=== PATIENT | female | born 1960 | race Hispanic/Latino ===

== ENCOUNTER 2020-03-14 06:53 | Emergency (ER) | payer OTHER ==
[2020-03-14] MEDS ORDERED: SODIUM CHLORIDE 0.9% 1000ML 1,000 ML IV ONE (06:54)
[2020-03-14 07:27] LABS: BASOPHILS % (AUTO) 0.4 % (0.0-5.0); EOSINOPHILS % (AUTO) 1.5 % (0.0-8.0); HEMATOCRIT 45.1 % (36-48); LYMPHOCYTES % (AUTO) 30.4 % (21.0-51.0); MEAN CORPUSCULAR HEMOGLOBIN 32.2 pg (27.0-33.0); MEAN CORPUSCULAR HGB CONC 34.6 g/dL (32.0-36.0); MONOCYTES % (AUTO) 7.8 % (3.0-13.0); NEUTROPHILS % (AUTO) 59.7 % (40.0-77.0); PLATELET COUNT (AUTO) 182 K/uL (130-400); RED BLOOD CELL COUNT(AUTO) 4.85 MIL/uL (4.00-5.50); RED CELL DISTRIBUTION WIDTH 12.4 % (11.0-15.5); WHITE BLOOD COUNT (AUTO) 4.6 K/uL (4.8-10.8)
[2020-03-14 07:42] LABS: BILIRUBIN,DIRECT 0.1 mg/dL (0.0-0.3); BILIRUBIN,TOTAL 0.6 mg/dL (0.2-1.0); CREATININE 0.8 mg/dL (0.5-1.5); POTASSIUM 4.1 mmol/L (3.5-5.1)
[2020-03-14] MEDS ORDERED: MAG HYDROX/AL HYDROX/SIMETH ES 30 ML SUSP UDCUP ONE (07:45)
[2020-03-14] MEDS ORDERED: ONDANSETRON HCL 4 MG/2 ML VIAL ONE (07:45)
[2020-03-14] MEDS ORDERED: LIDOCAINE HCL 2% VISCOUS 15 ML UDCUP ONE (07:45)
[2020-03-14] MEDS ORDERED: KETOROLAC TROMETHAMINE 30MG/ML ONE (07:46)
[2020-03-14] MEDS ORDERED: DICYCLOMINE HCL 10 MG/ML 2ML AMP IM ONE (08:40)
[2020-03-14] MEDS ORDERED: MORPHINE SULFATE 4 MG/1ML SYG ONE (10:00)
== END 2020-03-14 11:35 | disposition home or self-care (01) ==
LOC: EDH 06:53
DX: R10.13 Epigastric pain (principal); R11.0 Nausea; Z98.890 Other specified postprocedural states
CPT/HCPCS: 36415; 74018; 76705; 80048; 80076; 82550; 83690; 84484 ×2; 85025; 93005; 96361; 96374; 96375; 99284; 96372; 99285; J0500; J1885; J2270; J2405; J7030

== ENCOUNTER 2020-03-14 16:59 | Emergency (ER) | payer OTHER ==
[2020-03-14] MEDS ORDERED: LIDOCAINE HCL 2% VISCOUS 15 ML UDCUP ONE ×2 (17:31→19:41)
[2020-03-14] MEDS ORDERED: MAG HYDROX/AL HYDROX/SIMETH ES 30 ML SUSP UDCUP ONE ×2 (17:31→19:41)
[2020-03-14] MEDS ORDERED: FAMOTIDINE 20MG TAB 20 MG TAB ONE (17:32)
[2020-03-14] MEDS ORDERED: MAGNESIUM CITRATE 296 ML SOLUTION ONE (20:58)
== END 2020-03-14 21:13 | disposition home or self-care (01) ==
LOC: EDH 16:59
DX: K80.50 Calculus of bile duct without cholangitis or cholecystitis without obstruction (principal); R10.13 Epigastric pain; R10.11 Right upper quadrant pain
CPT/HCPCS: 76705; 84484

== ENCOUNTER 2020-04-02 00:03 | Emergency (ER) | payer OTHER ==
[2020-04-02] MEDS ORDERED: LIDOCAINE HCL 2% VISCOUS 15 ML UDCUP ONE ×2 (00:16→06:29)
[2020-04-02] MEDS ORDERED: MAG HYDROX/AL HYDROX/SIMETH ES 30 ML SUSP UDCUP ONE ×2 (00:16→06:29)
[2020-04-02] MEDS ORDERED: FAMOTIDINE 20MG TAB 20 MG TAB ONE ×3 (01:19→04:59)
[2020-04-02] MEDS ORDERED: ONDANSETRON 4 MG TABLET ONE (01:19)
[2020-04-02 01:22] LABS: BASOPHILS % (AUTO) 0.4 % (0.0-5.0); EOSINOPHILS % (AUTO) 1.8 % (0.0-8.0); HEMATOCRIT 42.3 % (36-48); LYMPHOCYTES % (AUTO) 31.6 % (21.0-51.0); MEAN CORPUSCULAR HGB CONC 34.5 g/dL (32.0-36.0); MEAN CORPUSCULAR VOLUME 92.8 fL (79-99); MONOCYTES % (AUTO) 10.2 % (3.0-13.0); NEUTROPHILS % (AUTO) 55.8 % (40.0-77.0); PLATELET COUNT (AUTO) 147 K/uL (130-400); RED BLOOD CELL COUNT(AUTO) 4.56 MIL/uL (4.00-5.50); RED CELL DISTRIBUTION WIDTH 12.6 % (11.0-15.5)
[2020-04-02 01:39] LABS: CREATININE 0.8 mg/dL (0.5-1.5); POTASSIUM 3.4 mmol/L (3.5-5.1)
[2020-04-02] MEDS ORDERED: DICYCLOMINE HCL 20 MG TAB ONE (03:01)
== END 2020-04-02 06:38 | disposition home or self-care (01) ==
LOC: EDH 00:03
DX: R10.13 Epigastric pain (principal); K21.9 Gastro-esophageal reflux disease without esophagitis; Z98.890 Other specified postprocedural states
CPT/HCPCS: 36415; 80048; 82550; 83690; 84484; 85025; 93005; 99284; Q0162

== ENCOUNTER 2020-04-04 00:08 | Emergency (ER) | payer OTHER ==
[2020-04-04] MEDS ORDERED: DICYCLOMINE HCL 10 MG/ML 2ML AMP IM ONE (00:51)
[2020-04-04] MEDS ORDERED: MAG HYDROX/AL HYDROX/SIMETH ES 30 ML SUSP UDCUP ONE (00:51)
[2020-04-04] MEDS ORDERED: FAMOTIDINE 20MG TAB 20 MG TAB ONE (00:51)
[2020-04-04] MEDS ORDERED: LIDOCAINE HCL 2% VISCOUS 15 ML UDCUP ONE (00:51)
[2020-04-04] MEDS ORDERED: ONDANSETRON ODT 4 MG TAB ONE (00:52)
[2020-04-04] MEDS ORDERED: METOCLOPRAMIDE 10 MG TABLET ONE (00:52)
[2020-04-04] MEDS ORDERED: PANTOPRAZOLE SODIUM 40 MG TABLET.DR ONE (00:52)
[2020-04-04] MEDS ORDERED: SIMETHICONE 80 MG TAB.CHEW ONE (02:20)
[2020-04-04] MEDS ORDERED: LACTULOSE 20 GM/30 ML UDCUP ONE (02:53)
== END 2020-04-04 03:01 | disposition home or self-care (01) ==
LOC: EDH 00:08
DX: K59.00 Constipation, unspecified (principal); R10.13 Epigastric pain; K21.9 Gastro-esophageal reflux disease without esophagitis; Z98.890 Other specified postprocedural states
CPT/HCPCS: 96372; 99284; J0500

== ENCOUNTER 2020-04-18 01:56 | Emergency (ER) | payer OTHER ==
[2020-04-18] MEDS ORDERED: LIDOCAINE HCL 2% VISCOUS 15 ML UDCUP ONE (03:02)
[2020-04-18] MEDS ORDERED: LACTULOSE 20 GM/30 ML UDCUP ONE (03:03)
[2020-04-18] MEDS ORDERED: MAG HYDROX/AL HYDROX/SIMETH ES 30 ML SUSP UDCUP ONE (03:03)
[2020-04-18] MEDS ORDERED: DICYCLOMINE HCL 10 MG/ML 2ML AMP IM ONE (03:04)
[2020-04-18] MEDS ORDERED: FAMOTIDINE 20MG TAB 20 MG TAB ONE (03:04)
[2020-04-18] MEDS ORDERED: PANTOPRAZOLE SODIUM 40 MG TABLET.DR ONE (03:04)
[2020-04-18] MEDS ORDERED: ONDANSETRON ODT 4 MG TAB ONE (03:05)
[2020-04-30] MEDS ORDERED: SUCR1ORA15 PO (22:18)
[2020-04-30] MEDS ORDERED: FAMO20TA8 PO (22:18)
[2020-04-30] MEDS ORDERED: ESOM40CA PO (22:18)
[2020-04-30] MEDS ORDERED: DICY20TA11 PO (22:18)
== END 2020-04-18 04:35 | disposition home or self-care (01) ==
LOC: EDH 01:56
DX: K59.00 Constipation, unspecified (principal); R10.13 Epigastric pain; R11.10 Vomiting, unspecified; K21.9 Gastro-esophageal reflux disease without esophagitis; Z98.890 Other specified postprocedural states
CPT/HCPCS: 96372; 99284; J0500

== ENCOUNTER 2020-04-18 14:54 | Emergency (ER) | payer OTHER ==
[2020-04-18] MEDS ORDERED: FAMOTIDINE 20MG TAB 20 MG TAB ONE (15:23)
[2020-04-18] MEDS ORDERED: LIDOCAINE HCL 2% VISCOUS 15 ML UDCUP ONE (15:23)
[2020-04-18] MEDS ORDERED: MAG HYDROX/AL HYDROX/SIMETH ES 30 ML SUSP UDCUP ONE (15:23)
[2020-04-18] MEDS ORDERED: PANTOPRAZOLE SODIUM 40 MG TABLET.DR ONE (15:24)
[2020-04-18] MEDS ORDERED: DICYCLOMINE HCL 10 MG/ML 2ML AMP IM ONE (15:24)
[2020-04-18] MEDS ORDERED: LACTULOSE 20 GM/30 ML UDCUP ONE (16:27)
[2020-04-30] MEDS ORDERED: ESOM40CA PO (22:18)
[2020-04-30] MEDS ORDERED: SUCR1ORA15 PO (22:18)
[2020-04-30] MEDS ORDERED: FAMO20TA8 PO (22:18)
[2020-04-30] MEDS ORDERED: DICY20TA11 PO (22:18)
== END 2020-04-18 16:35 | disposition home or self-care (01) ==
LOC: EDH 14:54
DX: K29.70 Gastritis, unspecified, without bleeding (principal); K59.00 Constipation, unspecified; K21.9 Gastro-esophageal reflux disease without esophagitis; Z98.890 Other specified postprocedural states
CPT/HCPCS: 96372; 99284; J0500

== ENCOUNTER 2020-04-27 02:37 | Emergency (ER) | payer OTHER ==
[2020-04-27] MEDS ORDERED: MAG HYDROX/AL HYDROX/SIMETH ES 30 ML SUSP UDCUP ONE (03:11)
[2020-04-27] MEDS ORDERED: LIDOCAINE HCL 2% VISCOUS 15 ML UDCUP ONE (03:11)
[2020-04-27] MEDS ORDERED: FAMOTIDINE 20MG TAB 20 MG TAB ONE (03:12)
[2020-04-27] MEDS ORDERED: DICYCLOMINE HCL 10 MG/ML 2ML AMP IM ONE (03:13)
[2020-04-27] MEDS ORDERED: PANTOPRAZOLE SODIUM 40 MG TABLET.DR ONE (03:13)
[2020-04-27] MEDS ORDERED: SIMETHICONE 80 MG TAB.CHEW ONE (03:14)
[2020-04-30] MEDS ORDERED: DICY20TA11 PO (22:18)
[2020-04-30] MEDS ORDERED: FAMO20TA8 PO (22:18)
[2020-04-30] MEDS ORDERED: SUCR1ORA15 PO (22:18)
[2020-04-30] MEDS ORDERED: ESOM40CA PO (22:18)
== END 2020-04-27 05:57 | disposition home or self-care (01) ==
LOC: EDH 02:37
DX: R10.13 Epigastric pain (principal); K21.9 Gastro-esophageal reflux disease without esophagitis; Z98.890 Other specified postprocedural states
CPT/HCPCS: 96372; 99284; J0500

== ENCOUNTER 2020-05-07 08:49 | Inpatient (IN) | payer OTHER ==
[~2020-05-07] VITALS: Ht 142.2 cm; Wt 89.4 kg
[~2020-05-07 08:49] MED LIST: ACET-2743 PO; DICY20TA11 PO; ESOM40CA PO; FAMO20TA8 PO; SUCR1ORA15 PO
[2020-05-07 10:54] LABS: BASOPHILS % (AUTO) 0.2 % (0.0-5.0); EOSINOPHILS % (AUTO) 0.4 % (0.0-8.0); HEMATOCRIT 31.2 % (36-48); LYMPHOCYTES % (AUTO) 15.7 % (21.0-51.0); MEAN CORPUSCULAR HEMOGLOBIN 32.6 pg (27.0-33.0); MEAN CORPUSCULAR HGB CONC 34.3 g/dL (32.0-36.0); MEAN CORPUSCULAR VOLUME 95.1 fL (79-99); MONOCYTES % (AUTO) 9.2 % (3.0-13.0); NEUTROPHILS % (AUTO) 73.9 % (40.0-77.0); PLATELET COUNT (AUTO) 173 K/uL (130-400); RED BLOOD CELL COUNT(AUTO) 3.28 MIL/uL (4.00-5.50); RED CELL DISTRIBUTION WIDTH 13.7 % (11.0-15.5); WHITE BLOOD COUNT (AUTO) 4.8 K/uL (4.8-10.8)
[2020-05-07 11:01] LABS: CARBON DIOXIDE 28 mmol/L (21-32); CHLORIDE 107 mmol/L (101-111); CREATININE 0.5 mg/dL (0.5-1.5); GLOMERULAR FILTR. RATE CALC 135 mL/min (>60); GLUCOSE,RANDOM 98 mg/dL (70-105); POTASSIUM 3.3 mmol/L (3.5-5.1); SODIUM SERUM 143 mmol/L (136-145); UREA NITROGEN, BLOOD 5 mg/dL (7-18)
[2020-05-07 11:06] LABS: ALANINE AMINOTRANSFERASE 44 U/L (12-78); ALBUMIN 3.2 g/dL (3.5-5.0); ASPARTATE AMINOTRANSFERASE 44 U/L (10-37); BILIRUBIN,DIRECT 0.3 mg/dL (0.0-0.3); BILIRUBIN,TOTAL 1.1 mg/dL (0.2-1.0); CREATINE KINASE, TOTAL 104 U/L (21-232); TOTAL PROTEIN, SERUM 6.5 g/dL (6.0-8.3)
[2020-05-07 11:11] LABS: LIPASE < 50 U/L (114-286)
[2020-05-07] MEDS ORDERED: LIDOCAINE HCL 2% VISCOUS 15 ML UDCUP ONE (11:16)
[2020-05-07] MEDS ORDERED: MAG HYDROX/AL HYDROX/SIMETH ES 30 ML SUSP UDCUP ONE (11:16)
[2020-05-07] MEDS ORDERED: ACETAMINOPHEN 325 MG TAB PO PRN ×2 (14:00)
[2020-05-07] MEDS ORDERED: MORPHINE SULFATE 2 MG/ML 1ML SYG IV PRN (14:00)
[2020-05-07 15:00] VITALS: BP 161/55
--- NOTE | 2020-05-07 19:50 | NUR ---
potassium 3.3 Called and informed on-call hospitalist with an order to give Potassium 20 mEQ IV x 1 only
[2020-05-07 20:00] VITALS: BP 156/84
[2020-05-07] MEDS ORDERED: LIDOCAINE HCL-MPF 1% 2ML VIAL IV SCH (20:00)
[2020-05-07] MEDS ORDERED: POTASSIUM CHLORIDE 20 MEQ/100 ML BAG IV SCH (20:00)
[2020-05-07] MEDS: SODIUM CHLORIDE 0.9% 1000ML 1,000 ML IV SCH (20:13)
[2020-05-07] MEDS: MAG HYDROX/AL HYDROX/SIMETH 60 ML, LIDOCAINE HCL 2% VISCOUS 60 ML, DIPHENHYDRAMINE HCL ... PO PRN ×3 (20:20)
[2020-05-07] MEDS: ONDANSETRON HCL 4 MG/2 ML VIAL IV PRN (20:25)
[2020-05-08] VITALS (20 sets, daily range): BP systolic 99–147; BP diastolic 47–89
[2020-05-08] MEDS: ONDANSETRON HCL 4 MG/2 ML VIAL IV PRN ×2 (05:52→12:07)
[2020-05-08] MEDS: MAG HYDROX/AL HYDROX/SIMETH 60 ML, LIDOCAINE HCL 2% VISCOUS 60 ML, DIPHENHYDRAMINE HCL ... PO PRN ×6 (05:53→12:17)
[2020-05-08 06:09] LABS: BASOPHILS % (AUTO) 0.2 % (0.0-5.0); EOSINOPHILS % (AUTO) 1.6 % (0.0-8.0); HEMATOCRIT 32.8 % (36-48); LYMPHOCYTES % (AUTO) 26.2 % (21.0-51.0); MEAN CORPUSCULAR HEMOGLOBIN 31.8 pg (27.0-33.0); MEAN CORPUSCULAR HGB CONC 33.2 g/dL (32.0-36.0); MEAN CORPUSCULAR VOLUME 95.6 fL (79-99); MONOCYTES % (AUTO) 11.3 % (3.0-13.0); NEUTROPHILS % (AUTO) 60.5 % (40.0-77.0); PLATELET COUNT (AUTO) 192 K/uL (130-400); RED BLOOD CELL COUNT(AUTO) 3.43 MIL/uL (4.00-5.50); RED CELL DISTRIBUTION WIDTH 14.1 % (11.0-15.5)
[2020-05-08 06:32] LABS: ALBUMIN 3.2 g/dL (3.5-5.0); BILIRUBIN,TOTAL 1.3 mg/dL (0.2-1.0); CREATININE 0.6 mg/dL (0.5-1.5); POTASSIUM 4.2 mmol/L (3.5-5.1); TOTAL PROTEIN, SERUM 6.6 g/dL (6.0-8.3)
[2020-05-08] MEDS ORDERED: LACTULOSE 20 GM/30 ML UDCUP PO PRN (07:00)
[2020-05-08] MEDS: ENOXAPARIN SODIUM 30 MG/0.3 ML SQ SCH (09:00)
[2020-05-08] MEDS: PANTOPRAZOLE 40 MG/VIAL IVP SCH ×2 (09:26→22:09)
[2020-05-08] MEDS ORDERED: SUCCINYLCHOLINE 200MG/10ML SYR ONE (10:27)
[2020-05-08] MEDS ORDERED: ATROPINE SULFATE 0.1 MG/ML 10 ML SYG IVP ONE (10:27)
[2020-05-08] MEDS ORDERED: PROPOFOL 10 MG/ML 20ML VIAL IV ONE (10:27)
[2020-05-08] MEDS ORDERED: LIDOCAINE HCL 1% 20 ML VIAL ONE (10:27)
[2020-05-08] MEDS ORDERED: GLYCOPYRROLATE 1 MG/5 ML SYRINGE ONE (10:28)
--- NOTE | 2020-05-08 11:50 | NUR ---
PT BACK FROM THE GI LAB AFTER EUS PROCEDURE PER DR DORSEY. PT AAO X [address]issa ORDERS AND POSTOP V/S STARTED ,
--- NOTE | 2020-05-08 12:25 | NUR ---
ORDER FULL LIQUID FOR NOW. REVIEW DR. JESSICA AND CALL LIGHT IN REACH,
--- NOTE | 2020-05-08 15:09 | NUR ---
MET WITH PATIENT FOR D/C PLANNING SPOU[facility] AT [facility], WHO WILL PROVIDE TRANSPORT. IS INDEPENDENT, NO DME, DRIVES AND DCP HOME. NO PRIMARY MD. 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 GOES TO [facility] FOR ACUTE PROBLEMS. Addendum: 05/08/20 at 1512 by ZACKERY MORALEZ RN CM Amended: Links added.
[2020-05-08] MEDS: SODIUM CHLORIDE 0.9% 1000ML 1,000 ML IV SCH ×2 (17:06)
[2020-05-08] MEDS: MAG HYDROX/AL HYDROX/SIMETH ES 30 ML SUSP UDCUP PO SCH (22:09)
[2020-05-08] MEDS: SUCRALFATE 1 GM TABLET PO SCH (22:45)
[2020-05-08] MEDS ORDERED: ZOLPIDEM TARTRATE 5 MG TAB PO ONE (22:45)
--- NOTE | 2020-05-08 22:45 | NUR ---
PATIENT REQUESTING SLEEPING AID AND REPORTS PERSISTENT REFLUX DISCOMFORT. CALLED ERIC ROY N.P. NEW ORDERS GIVEN FOR AMBIEN 5MG X1 AND CARAFATE 1GM X1. HOWEVER, PATIENT REFUSED CARAFATE AT THIS TIME, STATES SHE MIGHT TAKE IT LATER TONIGHT WHEN SHE GETS UP TO WALK THE REFLUX GETS WORSE WHEN LAYING IN BED. WILL CONTINUE TO MONITOR.
[2020-05-08] MEDS ORDERED: ZOLPIDEM TARTRATE 5 MG TAB ONE (22:47)
[2020-05-08] MEDS ORDERED: SUCRALFATE 1 GM TABLET ONE (22:47)
[2020-05-09 00:18] VITALS: BP 107/45
[2020-05-09 04:17] VITALS: BP 128/60
[2020-05-09 08:00] VITALS: BP 104/52
[2020-05-09] MEDS: MAG HYDROX/AL HYDROX/SIMETH ES 30 ML SUSP UDCUP PO SCH ×3 (10:09→21:00)
[2020-05-09] MEDS: SUCRALFATE 1 GM TABLET PO SCH ×2 (10:09→21:19)
[2020-05-09] MEDS: PANTOPRAZOLE 40 MG/VIAL IVP SCH ×2 (10:10→21:19)
[2020-05-09] MEDS: ENOXAPARIN SODIUM 30 MG/0.3 ML SQ SCH (10:13)
[2020-05-09 12:00] VITALS: BP 122/54
[2020-05-09 16:00] VITALS: BP 122/59
[2020-05-09] MEDS: SODIUM CHLORIDE 0.9% 1000ML 1,000 ML IV SCH ×2 (16:00→16:32)
[2020-05-09] MEDS ORDERED: ONDA-104 PO (17:34)
[2020-05-09] MEDS ORDERED: ESOM40CA54 PO (17:34)
[2020-05-09] MEDS ORDERED: FAMO20TA8 PO (17:34)
[2020-05-09] MEDS ORDERED: SUCR1ORA15 PO (17:34)
[2020-05-09] MEDS ORDERED: DICY20TA11 PO (17:34)
--- NOTE | 2020-05-09 17:34 | NUR ---
REDCONSILATION . MEDICATION .REVIEW. AND PLACED IN THE COMPUTER .FOR DR. QUINTANILLA .
[2020-05-09 20:11] VITALS: BP 125/86
[2020-05-10 00:25] VITALS: BP 129/68
[2020-05-10 04:00] VITALS: BP 113/58
[2020-05-10 06:47] LABS: BASOPHILS % (AUTO) 0.4 % (0.0-5.0); EOSINOPHILS % (AUTO) 1.7 % (0.0-8.0); HEMATOCRIT 32.3 % (36-48); LYMPHOCYTES % (AUTO) 23.6 % (21.0-51.0); MEAN CORPUSCULAR HEMOGLOBIN 32.1 pg (27.0-33.0); MEAN CORPUSCULAR HGB CONC 33.4 g/dL (32.0-36.0); MEAN CORPUSCULAR VOLUME 96.1 fL (79-99); MONOCYTES % (AUTO) 9.3 % (3.0-13.0); NEUTROPHILS % (AUTO) 64.2 % (40.0-77.0); PLATELET COUNT (AUTO) 193 K/uL (130-400); RED BLOOD CELL COUNT(AUTO) 3.36 MIL/uL (4.00-5.50); RED CELL DISTRIBUTION WIDTH 14.5 % (11.0-15.5); WHITE BLOOD COUNT (AUTO) 5.3 K/uL (4.8-10.8)
[2020-05-10 07:05] LABS: ALBUMIN 2.9 g/dL (3.5-5.0); BILIRUBIN,TOTAL 1.3 mg/dL (0.2-1.0); CREATININE 0.4 mg/dL (0.5-1.5); POTASSIUM 3.6 mmol/L (3.5-5.1)
[2020-05-10 07:30] VITALS: BP 111/42
[2020-05-10] MEDS: SODIUM CHLORIDE 0.9% 1000ML 1,000 ML IV SCH ×3 (07:55→21:25)
[2020-05-10] MEDS: SUCRALFATE 1 GM TABLET PO SCH ×3 (08:41→20:34)
[2020-05-10] MEDS: PANTOPRAZOLE 40 MG/VIAL IVP SCH ×2 (08:41→20:34)
[2020-05-10] MEDS: MAG HYDROX/AL HYDROX/SIMETH ES 30 ML SUSP UDCUP PO SCH ×3 (08:42→20:34)
[2020-05-10] MEDS: ENOXAPARIN SODIUM 30 MG/0.3 ML SQ SCH (08:42)
--- NOTE | 2020-05-10 10:00 | NUR ---
DR. HERNANDEZ, PT REFUSED CONSULT BY DR. HERNANDEZ, SHE DIDN'T WANT TO DISCUSS WHY SHE REFUSED THIS TREATMENT.
[2020-05-10 11:00] VITALS: BP 118/61
[2020-05-10 16:00] VITALS: BP 119/62
--- NOTE | 2020-05-10 18:08 | NUR ---
GI PER DR. CARBAJAL PATIENT GOING FOR GASTRO EMPTY STUDY TOMORROW AND CYNDIE YAO IS AWARE.
[2020-05-10 20:00] VITALS: BP 113/70
--- NOTE | 2020-05-10 20:35 | NUR ---
MEDS PT JUST HAD HER SHOWER, TOLERATED ACTIVITY WELL. SHIFT ASSESSMENT DONE, PLEASE REFER TO CHART. DUE MEDS ADMINISTERED, TOLERATED WELL. CALL LIGHT WITHIN REACH. WILL MONITOR PT. Addendum: 05/10/20 at 2123 by ROMULO BUSH RN RN Amended: Links added.
[2020-05-10] MEDS: ONDANSETRON HCL 4 MG/2 ML VIAL IV PRN (22:00)
--- NOTE | 2020-05-10 22:00 | NUR ---
NAUSEA PT VERBALIZES OF HAVING NAUSEA. MEDICATED WITH ZOFRAN IV. PT WALKED AROUND THE FLOOR, PT TOLERATING ACTIVITY WELL INDEPENDENTLY.
[2020-05-11] VITALS: BP 122/71
--- NOTE | 2020-05-11 01:50 | NUR ---
ROUNDS PT RESTING WELL, FAIRLY ASLEEP. NO DISTRESS NOTED. KEPT UNDISTURBED FOR NOW. KEPT NPO. CALL LIGHT WITHIN REACH. WILL MONITOR PT.
[2020-05-11 04:00] VITALS: BP 115/63
--- NOTE | 2020-05-11 04:56 | NUR ---
ROUNDS PT SLEPT AT LONG INTERVALS. NO DISTRESS NOTED. KEPT NPO. KEPT COMFORTABLE IN BED. FOR MORE CARE.
[2020-05-11 06:00] LABS: BASOPHILS % (AUTO) 0.3 % (0.0-5.0); EOSINOPHILS % (AUTO) 2.6 % (0.0-8.0); LYMPHOCYTES % (AUTO) 26.2 % (21.0-51.0); MEAN CORPUSCULAR HEMOGLOBIN 32.6 pg (27.0-33.0); MEAN CORPUSCULAR HGB CONC 33.9 g/dL (32.0-36.0); MEAN CORPUSCULAR VOLUME 96.2 fL (79-99); MONOCYTES % (AUTO) 11.9 % (3.0-13.0); NEUTROPHILS % (AUTO) 58.5 % (40.0-77.0); PLATELET COUNT (AUTO) 167 K/uL (130-400); RED BLOOD CELL COUNT(AUTO) 2.91 MIL/uL (4.00-5.50); RED CELL DISTRIBUTION WIDTH 14.6 % (11.0-15.5); WHITE BLOOD COUNT (AUTO) 3.9 K/uL (4.8-10.8)
[2020-05-11 06:20] LABS: ALBUMIN 2.5 g/dL (3.5-5.0); CREATININE 0.5 mg/dL (0.5-1.5); POTASSIUM 3.6 mmol/L (3.5-5.1); TOTAL PROTEIN, SERUM 5.2 g/dL (6.0-8.3)
[2020-05-11] MEDS: SODIUM CHLORIDE 0.9% 1000ML 1,000 ML IV SCH ×2 (06:24→18:00)
--- NOTE | 2020-05-11 08:00 | NUR ---
ASSESSMENT NOTE PT AAOX3 PT IN BED STATING SHE IS NAUSEATED, SHE HAS NO PAIN, VS STABLE NO SHORTNESS OF BREATH. SHE IS SCHEDULED FOR GASTRIC EMPTING STUDY PER DR. CARBAJAL.
[2020-05-11 08:02] VITALS: BP 120/66
[2020-05-11] MEDS: SUCRALFATE 1 GM TABLET PO SCH ×2 (08:27→14:07)
[2020-05-11] MEDS: MAG HYDROX/AL HYDROX/SIMETH ES 30 ML SUSP UDCUP PO SCH ×2 (08:28→14:07)
[2020-05-11] MEDS: ENOXAPARIN SODIUM 30 MG/0.3 ML SQ SCH (09:02)
[2020-05-11] MEDS: PANTOPRAZOLE 40 MG/VIAL IVP SCH (09:53)
--- NOTE | 2020-05-11 10:00 | NUR ---
ROUNDING PT IS WALKING AROUND IN THE HALLWAY.
[2020-05-11 11:00] VITALS: BP 122/65
--- NOTE | 2020-05-11 12:30 | NUR ---
ROUNDING PT LEFT FOR GASTRIC EMPTING STUDY BY WHEELCHAIR
--- NOTE | 2020-05-11 13:30 | NUR ---
GI PT REFUSED GASTRIC EMPTING STUDY. PT DIDN'T NOT WANT TO DISCUSS REASON WHY SHE REFUSED. PT HAS SIGNED REFUSAL OF TREATMENT. DR. CARBAJAL IS AWARE SHE IS SCHEDULED FOR THE GASTRIC EMPTING STUDY TOMORROW WITH [facility]. NO FURTHER ORDERS AT THIS TIME
--- NOTE | 2020-05-11 14:10 | NUR ---
Se MADRID CAME TO SEE PT AT BEDSIDE
--- NOTE | 2020-05-11 14:24 | NUR ---
DR. CHAN,P PT MAYBE D/C TO HOME. TO F/U WITH DR. CARBAJAL FOR HER GASTRIC EMPTYING STUDY TOMORROW AND F/U WITH PRIMARY
[2020-05-11 16:15] VITALS: BP 104/69
[2020-05-11] MEDS: ONDANSETRON HCL 4 MG/2 ML VIAL IV PRN (17:23)
--- NOTE | 2020-05-11 18:42 | NUR ---
DC PT AA0X3 LEFT VIA WHEELCHAIR IN PVT CAR. NO COMPLICATIONS UPON LEAVING. SHE IS CALL DR CARBAJAL OFFICE TO FOLLOW UP TOMORROW., VS STABLE UPON D/C
== END 2020-05-11 18:40 | disposition home or self-care (01) | DRG 947 ==
LOC: EDH 08:49 → 3CH 13:49 → 3BH 05-08 06:19
PROVIDERS: ADMIT Hospitalist; ATTEND Hospitalist
PROC: 0DJ08ZZ Inspection of Upper Intestinal Tract, Via Natural or Artificial Opening Endoscopic (ICD-10-PCS; principal; 2020-05-08)
DX: G89.18 Other acute postprocedural pain (principal); K66.1 Hemoperitoneum; E44.0 Moderate protein-calorie malnutrition; Z68.41 Body mass index [BMI] 40.0-44.9, adult; K29.50 Unspecified chronic gastritis without bleeding; K21.9 Gastro-esophageal reflux disease without esophagitis; F41.9 Anxiety disorder, unspecified; R74.8 Abnormal levels of other serum enzymes; R93.2 Abnormal findings on diagnostic imaging of liver and biliary tract; K31.89 Other diseases of stomach and duodenum; Z90.49 Acquired absence of other specified parts of digestive tract
CPT/HCPCS: 36415; 43237; 74176; 80048; 80053; 80076; 82550; 83690; 84484; 85025; 87486; 87581; 87633; 87798; 93005; A4606; C9113; G0378; J0330; J0461; J1650; J2405; J2704; J3480; J3490; J7030

== ENCOUNTER 2020-05-30 18:08 | Emergency (ER) | payer OTHER ==
[~2020-05-30 18:08] MED LIST changes: -ACET-2743 PO; -ESOM40CA PO; +ESOM40CA54 PO; +ONDA-104 PO
[2020-05-30] MEDS ORDERED: FAMOTIDINE 20MG TAB 20 MG TAB ONE (18:29)
[2020-05-30] MEDS ORDERED: LIDOCAINE HCL 2% VISCOUS 15 ML UDCUP ONE (18:29)
[2020-05-30] MEDS ORDERED: MAG HYDROX/AL HYDROX/SIMETH ES 30 ML SUSP UDCUP ONE (18:29)
[2020-05-30 18:59] LABS: BASOPHILS % (AUTO) 0.2 % (0.0-5.0); EOSINOPHILS % (AUTO) 1.6 % (0.0-8.0); HEMATOCRIT 43.1 % (36-48); LYMPHOCYTES % (AUTO) 27.8 % (21.0-51.0); MEAN CORPUSCULAR HEMOGLOBIN 32.6 pg (27.0-33.0); MEAN CORPUSCULAR HGB CONC 33.6 g/dL (32.0-36.0); MEAN CORPUSCULAR VOLUME 96.9 fL (79-99); MONOCYTES % (AUTO) 7.8 % (3.0-13.0); NEUTROPHILS % (AUTO) 62.4 % (40.0-77.0); PLATELET COUNT (AUTO) 170 K/uL (130-400); RED BLOOD CELL COUNT(AUTO) 4.45 MIL/uL (4.00-5.50); WHITE BLOOD COUNT (AUTO) 4.9 K/uL (4.8-10.8)
[2020-05-30 19:09] LABS: CREATININE 0.8 mg/dL (0.5-1.5); POTASSIUM 4.4 mmol/L (3.5-5.1)
[2020-05-30 19:13] LABS: ALBUMIN 4.1 g/dL (3.5-5.0); BILIRUBIN,TOTAL 0.6 mg/dL (0.2-1.0); TOTAL PROTEIN, SERUM 7.7 g/dL (6.0-8.3)
[2020-05-30 21:00] LABS: APPEARANCE,URINE Turbid (CLEAR); BILIRUBIN,URINE Negative (NEGATIVE); COLOR,URINE Dark Yellow (YELLOW); GLUCOSE, URINE (UA) Negative (NEGATIVE); KETONES,URINE >=80 mg/dL (NEGATIVE); LEUKOCYTE ESTERASE ,URINE Moderate (NEGATIVE); NITRATE,URINE Negative (NEGATIVE); OCCULT BLOOD,URINE Negative (NEGATIVE); PH,URINE 5.5 (5.0-8.0); PROTEIN,URINE Trace mg/dL (NEGATIVE)
[2020-05-30] MEDS ORDERED: DICYCLOMINE HCL 10 MG/ML 2ML AMP IM ONE (21:21)
[2020-05-30 21:25] LABS: BACTERIA,URINE Few /HPF (None Seen); CALCIUM OXALATE CRYSTALS,UR Moderate /LPF (None Seen); RBC,URINE None Seen /HPF (0-1)
== END 2020-05-30 21:41 | disposition home or self-care (01) ==
LOC: EDH 18:08
DX: K29.00 Acute gastritis without bleeding (principal); K43.9 Ventral hernia without obstruction or gangrene; G89.18 Other acute postprocedural pain; R10.13 Epigastric pain; K21.9 Gastro-esophageal reflux disease without esophagitis; Z90.49 Acquired absence of other specified parts of digestive tract
CPT/HCPCS: 36415; 74176; 80053; 81001; 83690; 84484; 85025; 87077; 87088; 87186; 93005; 96372; 99285; J0500

== ENCOUNTER → 2020-07-17 | Outpatient (CLI) | payer OTHER | END | disposition home or self-care (01) | LOC: RAH 10:00 | PROVIDERS: ATTEND Internal Medicine | DX: R10.9 Unspecified abdominal pain (principal) | CPT/HCPCS: 78264; A9541 ==